=== PATIENT | male | born 1990 | race Caucasian/White ===

== ENCOUNTER 2018-06-03 14:50 | Emergency (ER) | payer MEDICAID ==
[~2018-06-03] VITALS: Ht 170.2 cm; Wt 127.3 kg
[2018-06-03 15:18] LABS: GLUCOSE,POINT OF CARE 99 MG/DL (70-110)
[2018-06-03] MEDS: LORazepam 1 MG TABLET PO ONE (17:51)
[2018-06-03 18:02] VITALS: BP 143/95
== END 2018-06-03 18:03 | disposition home or self-care (01) ==
LOC: EMS 14:51
DX: F41.9 Anxiety disorder, unspecified (principal); F12.90 Cannabis use, unspecified, uncomplicated; F32.9 Major depressive disorder, single episode, unspecified; E11.9 Type 2 diabetes mellitus without complications; I10 Essential (primary) hypertension; F17.200 Nicotine dependence, unspecified, uncomplicated; Z90.49 Acquired absence of other specified parts of digestive tract

== ENCOUNTER 2018-06-28 13:02 | Emergency (ER) | payer MEDICAID ==
[~2018-06-28] VITALS: Ht 177.8 cm; Wt 121.3 kg
[2018-06-28] MEDS ORDERED: KETOROLAC TROMETHAMINE 30 MG/ML VIAL IM ONE (15:30)
[2018-06-28 16:55] VITALS: BP 145/86
== END 2018-06-28 17:00 | disposition home or self-care (01) ==
LOC: EMS 13:03
DX: S33.8XXA Sprain of other parts of lumbar spine and pelvis, initial encounter (principal); I10 Essential (primary) hypertension; E11.9 Type 2 diabetes mellitus without complications; F32.9 Major depressive disorder, single episode, unspecified; F12.90 Cannabis use, unspecified, uncomplicated; W18.39XA Other fall on same level, initial encounter; Y93.89 Activity, other specified; Y92.89 Other specified places as the place of occurrence of the external cause; Y99.8 Other external cause status
CPT/HCPCS: 96372; 99283; J1885